=== PATIENT | female | born 1940 | race Caucasian/White ===

== ENCOUNTER → 2016-10-10 | Outpatient (CLI) | payer MEDICARE, BC ==
[~2016-10-10] MED LIST: IOHEXOL 300 MG/ML 50ml INJECTION ONE; NORMAL SALINE 100 ML ONE; SALINE FLUSH 10ml SYRINGE ONE
[2016-10-10 09:37] LABS: CREATININE 0.9 MG/DL (0.7-1.2)
--- NOTE | 2016-10-10 11:04 | DI ---
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 Coronal and sagittal two-dimensional reformatted images were created and reviewed. Automated Exposure Control and Iterative Reconstruction dose reducing techniques were utilized. Contrast: Omnipaque 300 49mL Findings: Bone windows show no acute fractures. No significant mucosal thickening in the visualized paranasal sinuses. 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 There is very abnormal shape of the right globe with elongation of the posterior half. This causes abnormal posterior convex bulging and is predominantly lateral to the optic disk. Left lobe shows slight anteroposterior elongation. The lenses are located. Left globe also appears slightly elongated without as pronounced of a bulge. No intraocular hemorrhage or mass identified. The optic nerves are grossly normal in attenuation and thickness. Extraocular muscles are symmetric. Postcontrast images show no evidence of enhancing mass within the orbits. The superior ophthalmic artery and vein are normal in caliber. The right globe visually appears to be proptotic however using radiographic measurements and reference to the interzygomatic line the distance from the interzygomatic line to the posterior sclera is 9.7 mm on the right and 6.6 mm on the left, both within normal limits. The distance from the anterior zygomatic line to the anterior surface of the globe is 20 mm on the right and 17.8 mm on the left, also within normal limits. Impression: Abnormal shape of the right globe with a posterior bulge which is located lateral to the optic disk. 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 Slight increase in anteroposterior diameter of the left globe could be due to axial myopia or a more mild staphyloma. .
== END ==
LOC: IMA 09:00
PROVIDERS: ATTEND Ophthalmology
DX: H05.20 Unspecified exophthalmos (principal); R94.8 Abnormal results of function studies of other organs and systems
CPT/HCPCS: 36415; 70482; 82565; 84520; J7050; Q9967